=== PATIENT | female | born 1935 | race Caucasian/White ===

== ENCOUNTER → 2016-10-01 | Outpatient (CLI) | payer OTHER | LOC: FIMAGING 13:10 → EDSTATUS 13:11 | PROVIDERS: ATTEND Family Medicine | DX: M43.16 Spondylolisthesis, lumbar region (principal); M12.88 Other specific arthropathies, not elsewhere classified, other specified site; M41.86 Other forms of scoliosis, lumbar region ==

== ENCOUNTER 2017-02-20 06:59 | Emergency (ER) | payer OTHER ==
[2017-02-20 07:09] VITALS: RESP 16; O2SAT 94
--- NOTE | 2017-02-20 07:22 | EDPHY ---
H & P Stated Complaint: RUQ abdominal pain Time Seen by Provider: 02/20/17 07:21 - Personal History Current Tetanus Diphtheria and Acellular Pertussis (TDAP): Yes Tetanus Vaccine Date: < 10 - Medical/Surgical History Hx Asthma: No Hx Chronic Respiratory Disease: No Hx Diabetes: No Hx Cardiac Disease: Yes Hx Renal Disease: No Hx Cirrhosis: No Hx Alcoholism: No Hx HIV/AIDS: No Hx Splenectomy or Spleen Trauma: No Other PMH: BOWEL OBSTRUCTION, STENT, BREAST CA, CHOLESTEROL, E. TREMOR, DIVERTICULOSIS - Social History Smoking Status: Former smoker Constitutional: Initial Vital Signs Temperature (C) 37.2 C 02/20/17 07:02 Heart Rate 65 02/20/17 07:02 Respiratory Rate 16 02/20/17 07:02 Blood Pressure 131/77 H 02/20/17 07:02 O2 Sat (%) 94 02/20/17 07:02 Allergies/Adverse Reactions: adhesive Allergy (Verified 02/20/17 07:04) Other-Enter Comments codeine [Codeine] Allergy (Verified 02/20/17 07:04) NAUSEA Home Medications: Medication Instructions Recorded Calcium Carbonate/Vitamin D3 1 each PO DAILY 01/05/13 [Caltrate 600 + D Tablet] Multivitamins [Tab-A-Deborah] 1 each PO DAILY 01/05/13 Primidone 100 mg PO BID 01/05/13 Propranolol HCl [Inderal 40mg (*)] 40 mg PO BID 01/05/13 Simvastatin [Zocor 40 mg (RX)] 40 mg PO DAILY18 01/05/13 Triamterene/Hctz 75/50 [Maxzide 1 tab PO DAILY 01/05/13 75-50 mg Tab (RX)] Zolpidem Tartrate [Ambien 5MG (RX)] 5 mg PO HS PRN 01/05/13 Aspirin 81mg (OTC) 10/22/13 Clopidogrel Bisulfate [Plavix (RX)] 75 mg PO DAILY 10/22/13 CYCLOBENZAPRINE HCL [Flexeril] 06/15/14 Atorvastatin Calcium [Lipitor 40 40 mg PO DAILY 02/20/17 mg (*)] Clobetasol 0.05% [Temovate Cream] 02/20/17 Hydrocodone/APAP 5/325 [[place] 0.5 - 1 each PO Q4-6PRN PRN #20 tab 10/14/17 5/325] Ranitidine HCl 150 mg PO BID 02/20/17 Triamterene/Hydrochlorothiazid 02/20/17 [Triamterene-Hctz 75-50 mg Tab] Medical Decision Making - Diagnostics Imaging Results: Imaging Impressions Chest CT 02/20/17 07:26 Impression: 1. Negative. No acute fracture, pneumothorax, or explanation for right-sided pain. 2. Chronic mild airways disease. No pulmonary fibrosis or acute pulmonary process. Findings discussed with Emergency Department physician, Abdullahi Johnson M.D. on February 20, 2017 at 0918 hours. Imaging: Discussed imaging studies w/ faculty i on call medical assistant Radiologist, I viewed and interpreted images myself ED Course/Re-evaluation: CHIEF COMPLAINT: Right-sided rib pain HISTORY OF PRESENT ILLNESS: The patient is an 81 y/o female complaining of right-sided lower rib pain that woke her up this morning. The pain is exacerbated when she coughs, but it does not hurt to take a deep breath. When she lies on her left side, she notes it feels like its crushing her right ribs. Denies recent trauma, chest pain, abdominal pain, shortness of breath, paresthesias or other pertinent symptoms. REVIEW OF SYSTEMS: A 10 point review of systems was performed and is negative with the exception of the elements mentioned in the history of present illness. PHYSICAL EXAM: HR, BP, O2 Sat, RR. Temp noted General Appearance: Alert, well hydrated, appropriate, and non-toxic appearing. Head: Atraumatic without scalp tenderness or obvious injury Eyes: Pupils equal, round, reactive to light and accommodation, EOMI, no trauma , no injection. Ears: Clear bilaterally, no perforation, normal landmarks Nose: Atraumatic, no rhinorrhea, clear. Throat: Mucus membranes moist. Neck: Supple, nontender, no lymphadenopathy. Respiratory: No retractions, no distress, no wheezes, and no accessory muscle use. Lungs are clear to auscultation bilaterally. Cardiovascular: Regular rate and rhythm, no murmurs, rubs, or gallops. Good capillary refill all extremities. Gastrointestinal: Abdomen is soft, nontender, non-distended, no masses, no rebound, no guarding, no peritoneal signs. Musculoskeletal: Right 12th rip pain when pressing rib cage. Normal active ROM of all extremities, atraumatic. Neurological: Alert, appropriate, and interactive. Non-focal neuro. Skin: No rashes, good turgor, no nodules on palpation. Past medical history: Bowel obstruction, breast cancer, hypercholesteremia, diverticulosis Past surgical history: Stent Family history: Noncontributory Social history: Lives in [place], retired, son at bedside DIAGNOSTICS/PROCEDURES/CRITICAL CARE TIME: Chest CT: Normal DIFFERENTIAL DIAGNOSIS: The differential diagnosis for the patient's rib pain included but was not limited to musculoskeletal pain, rib fracture, intra-abdominal causes including urinary tract infection, cholecystitis, and appendicitis. MEDICAL DECISION MAKING: The patient is an 81 y/o female who presents with right 12th rip pain on palpation and when pressing the rib cage. She denies recent trauma. Plan on 0.5mg IV Dilaudid, 30mg IV Toradol, 4mg IV Zofran and a chest CT. 0915: Spoke with Dr. Lind, radiologist, he reports the patient has a normal chest CT. It is possible she has an occult rib fracture not visible with imaging. 0944: Reassessed patient and discussed imaging findings. She will be prescribed Vicodin for her severe rib pain. Return precautions provided; patient is comfortable with this plan. - Data Points Laboratory Results: 02/20/17 07:31 POC Hgb 14.6 gm/dL gm/dL (12.6-16.3) POC Hct 43 % % (38-47) POC Sodium 138 mEq/L mEq/L (134-144) POC Potassium 3.4 mEq/L mEq/L (3.3-5.0) POC Chloride 98 mEq/L mEq/L (97-110) POC BUN 19 mg/dL mg/dL (7-23) POC Creatinine 1.1 mg/dL H mg/dL (0.6-1.0) POC Glucose 84 mg/dL mg/dL (70-100) Medications Given: Discontinued Medications Hydromorphone HCl (Dilaudid) 0.5 mg IVP EDNOW ONE Stop: 02/20/17 07:27 Last Admin: 02/20/17 07:46 Dose: Not Given Ketorolac Tromethamine (Toradol) 30 mg IVP EDNOW ONE Stop: 02/20/17 07:28 Last Admin: 02/20/17 07:46 Dose: 30 mg Ondansetron HCl (Zofran) 4 mg IVP EDNOW ONE Stop: 02/20/17 07:28 Last Admin: 02/20/17 07:46 Dose: 4 mg Point of Care Test Results: 02/20/17 07:31 POC Sodium 138 POC Potassium 3.4 POC Chloride 98 POC BUN 19 POC Creatinine 1.1 H POC Glucose 84 Departure - Departure Disposition: Home, Routine, Self-Care Clinical Impression: Rib pain on right side Condition: Good Instructions: Rib Fracture (ED), Rib Contusion (ED) Additional Instructions: 1. You have a possible occult rib fracture that was not visible on your CT scan. 2. Take Vicodin as prescribed for severe pain. 3. Take 600mg Ibuprofen every 4-6 hours for pain. 4. Followup with your primary doctor within 72 hours for reevaluation. 5. Return to the emergency department for fever, worsening pain, shortness of breath or difficulty breathing, abdominal pain, blood in urine or other concerns. Referrals: Mely Jackson MD [Primary Care Provider] - As per Instructions Prescriptions: Hydrocodone/APAP 5/325 [[place] 5/325] 0.5 - 1 each PO Q4-6PRN PRN #20 tab PRN Reason: Pain, Moderate Report Scribed for: Abdullahi Johnson Report Scribed by: Qi Hagen Date of Report: 02/20/17 Time of Report: 07:22
[2017-02-20] MEDS ORDERED: HYDROmorphONE/DILAUDID 1 MG/ML INJ IVP ONE (07:26)
[2017-02-20] MEDS ORDERED: ONDANSETRON 4 MG/2 ML VIAL IVP ONE (07:27)
[2017-02-20] MEDS ORDERED: KETOROLAC 30 MG/1 ML SDV IVP ONE (07:27)
[2017-02-20] MEDS ORDERED: IOPAMIDOL (ISOVUE-300) 100 ML BTL ONE (07:38)
[2017-02-20 10:00] VITALS: BP 125/66; PULSE 77; TEMP 97.3
== END 2017-02-20 10:01 | disposition home or self-care (01) ==
DX: R07.81 Pleurodynia (principal); Z79.82 Long term (current) use of aspirin; Z85.3 Personal history of malignant neoplasm of breast; Z87.891 Personal history of nicotine dependence
CPT/HCPCS: 71260; 96374; 96375; 99285; J1885; J2405; Q9967; 82947-QW; J1170

== ENCOUNTER 2017-03-23 09:29 | Emergency (ER) | payer OTHER ==
[2017-03-23 09:43] VITALS: RESP 18; TEMP 97.9
[2017-03-23] MEDS ORDERED: HYDROCODONE/APAP 5/325 TAB PO ONE (11:02)
--- NOTE | 2017-03-23 12:28 | EDPHY ---
H & P Stated Complaint: r rib pain x 1 month/seen here ct wnl Time Seen by Provider: 03/23/17 10:45 HPI/ROS: CHIEF COMPLAINT: Right rib pain HISTORY OF PRESENT ILLNESS: This is an 81-year-old female with remote history of coronary artery disease status post stenting and breast cancer, status post bilateral mastectomy, chemotherapy, and radiation therapy. She has had breast reconstruction. She presents today with worsening right-sided lower rib pain. This has been present for over a month but over the last few days seems to be getting worse. She notices that it is worse with movement. She has not had fever or cough. She is not short of breath. She denies chest trauma. She has been taking [id number] Tylenol for this with minimal relief. She has seen a primary care physician twice for this problem and was prescribed a lidocaine cream that apparently did not get sent through to the pharmacy. REVIEW OF SYSTEMS: A ten point review of systems was performed and is negative with the exception of the items mentioned in the HPI. Past medical history: 1. Breast cancer status status post bilateral mastectomy, chemo therapy, radiation therapy and reconstructive surgery 2. Diverticulitis 3. Bowel obstruction 4. Essential tremor 5. Coronary artery disease status post stenting Past surgical history: 1. Bilateral mastectomy and breast reconstruction 2. Partial colectomy Social history: She lives independently. She is accompanied by her son today. No tobacco use. General Appearance: Alert. Vital signs reviewed. Blood pressure 139/73 Eyes: Pupils equal and round, no conjunctival injection, no discharge. Anicteric. ENT, Mouth: Mucous membranes are moist, no oropharyngeal erythema or edema. Neck: No lymphadenopathy, supple. Respiratory: Lungs are clear to auscultation; no wheezes, rales, or rhonchi. Thorax: There is tenderness to palpation over the anterior right 12th rib. No crepitus. No skin changes overlying. Cardiovascular: Regular rate and rhythm; no murmur, rub, or gallop. Gastrointestinal: Abdomen is soft and nontender, no masses or organomegaly, bowel sounds normal. Skin: Warm and dry, no rashes on exposed skin, normal color. Back: Nontender to palpation over the thoracolumbar spine. No CVAT. Extremities: No lower extremity edema, no calf tenderness or swelling. Neurological: Alert and oriented. Moving all four extremities easily and equally. Psychiatric: Normal affect. - Personal History Current Tetanus/Diphtheria Vaccine: Yes Tetanus Vaccine Date: < 10 - Medical/Surgical History Hx Asthma: No Hx Chronic Respiratory Disease: No Hx Diabetes: No Hx Cardiac Disease: Yes Hx Renal Disease: No Hx Cirrhosis: No Hx Alcoholism: No Hx HIV/AIDS: No Hx Splenectomy or Spleen Trauma: No Other PMH: BOWEL OBSTRUCTION, STENT, BREAST CA, CHOLESTEROL, E. TREMOR, DIVERTICULOSIS - Social History Smoking Status: Former smoker Constitutional: Initial Vital Signs Temperature (C) 36.6 C 03/23/17 09:38 Heart Rate 61 03/23/17 09:38 Respiratory Rate 18 03/23/17 09:38 Blood Pressure 139/73 H 03/23/17 09:38 O2 Sat (%) 94 03/23/17 09:38 O2 Delivery Mode Room Air Allergies/Adverse Reactions: adhesive Allergy (Verified 03/23/17 09:37) Other-Enter Comments codeine [Codeine] Allergy (Verified 03/23/17 09:37) NAUSEA Home Medications: Medication Instructions Recorded Calcium Carbonate/Vitamin D3 1 each PO DAILY 01/05/13 [Caltrate 600 + D Tablet] Multivitamins [Tab-A-Deborah] 1 each PO DAILY 01/05/13 Primidone 100 mg PO BID 01/05/13 Propranolol HCl [Inderal 40mg (*)] 20 mg PO BID 01/05/13 Simvastatin [Zocor 40 mg (RX)] 40 mg PO DAILY18 01/05/13 Triamterene/Hctz 75/50 [Maxzide 1 tab PO DAILY 01/05/13 75-50 mg Tab (RX)] Zolpidem Tartrate [Ambien 5MG (RX)] 5 mg PO HS PRN 01/05/13 Aspirin 81mg (OTC) 10/22/13 Clopidogrel Bisulfate [Plavix (RX)] 75 mg PO DAILY 10/22/13 CYCLOBENZAPRINE HCL [Flexeril] 06/15/14 Atorvastatin Calcium [Lipitor 40 40 mg PO DAILY 02/20/17 mg (*)] Clobetasol 0.05% [Temovate Cream] 02/20/17 Hydrocodone/APAP 5/325 [[place] 0.5 - 1 each PO Q4-6PRN PRN #20 tab 02/20/17 5/325] Ranitidine HCl 150 mg PO BID 02/20/17 Triamterene/Hydrochlorothiazid 02/20/17 [Triamterene-Hctz 75-50 mg Tab] Lidocaine [Lidocaine 4% cream] 30 gm TP BID PRN #1 cream..g. 03/23/17 Medical Decision Making ED Course/Re-evaluation: I reviewed her previous CT scan in spoke with the Radiology Service about additional imaging. I am concerned about the possibility of bony metastases in this setting of worsening rib pain. The patient herself thinks this is highly unlikely and feels that her breast cancer was thoroughly treated. A bone scan would be needed in order to adequately assess this. Radiology recommends two- view chest x-ray as the initial evaluation today. This was performed. No abnormalities are noted. I reviewed the x-ray in the radiologist's report. She received 1 Allison in the emergency department. She was reluctant to take this medication. She had some pain relief with it, but noted that it made her feel dizzy. Given that she is on a blood thinner and has a history of dizziness and some difficulty with her balance, she is cautioned to be careful with these medications. She has a prescription but will likely not use it. This is an ongoing problem and I do not feel that additional studies in the emergency department will be helpful. She is encouraged to follow up with her primary care physician and agrees to do so. She is given a prescription for lidocaine cream to see if she can obtain some relief with this medication. She cannot use lidocaine patches because she has a reaction to adhesives. Her pain is on the right and I do not suspect a cardiac etiology. She is not hypoxic or tachycardic and I do not think that PE is likely. No signs of infection or pneumonia. - Data Points Medications Given: Discontinued Medications Hydrocodone Bitart/Acetaminophen ([place] 5/325) 1 tab PO EDNOW ONE Stop: 03/23/17 11:03 Last Admin: 03/23/17 11:23 Dose: 1 tab Departure - Departure Disposition: Home, Routine, Self-Care Clinical Impression: Rib pain on right side Condition: Good Instructions: Chest Wall Pain (ED) Additional Instructions: Try the lidocaine cream. Follow up in Dr. Jackson' office. Referrals: Mely Jackson MD [Primary Care Provider] - As per Instructions Prescriptions: Lidocaine [Lidocaine 4% cream] 30 gm TP BID PRN #1 cream..g. PRN Reason: chest wall pain
[2017-03-23 12:53] VITALS: BP 122/71; PULSE 56; O2SAT 93
== END 2017-03-23 12:53 | disposition home or self-care (01) ==
DX: R07.81 Pleurodynia (principal); I25.10 Atherosclerotic heart disease of native coronary artery without angina pectoris; Z79.82 Long term (current) use of aspirin; Z85.3 Personal history of malignant neoplasm of breast; Z87.891 Personal history of nicotine dependence; Z95.5 Presence of coronary angioplasty implant and graft

== ENCOUNTER → 2017-04-08 | Outpatient (CLI) | payer OTHER | LOC: FIMAGING 09:18 | PROVIDERS: ATTEND Family Medicine | DX: M89.8X9 Other specified disorders of bone, unspecified site (principal); R22.0 Localized swelling, mass and lump, head; Z85.3 Personal history of malignant neoplasm of breast | CPT/HCPCS: 78306; A9503 ==

== ENCOUNTER → 2017-05-05 | Outpatient (CLI) | payer OTHER | LOC: FIMAGING 12:36 | PROVIDERS: ATTEND Internal Medicine Hematology & Oncology | DX: D47.2 Monoclonal gammopathy (principal); Z85.3 Personal history of malignant neoplasm of breast; R93.0 Abnormal findings on diagnostic imaging of skull and head, not elsewhere classified; R93.6 Abnormal findings on diagnostic imaging of limbs ==

== ENCOUNTER → 2017-07-22 | Outpatient (CLI) | payer OTHER | LOC: FIMAGING 15:30 | PROVIDERS: ATTEND Family Medicine | DX: M41.86 Other forms of scoliosis, lumbar region (principal); M85.80 Other specified disorders of bone density and structure, unspecified site ==

== ENCOUNTER → 2017-07-30 | Outpatient (CLI) | payer OTHER | LOC: FIMAGING 15:41 | PROVIDERS: ATTEND Family Medicine | DX: J45.909 Unspecified asthma, uncomplicated (principal) ==

== ENCOUNTER → 2017-08-03 | Outpatient (CLI) | payer OTHER ==
[~2017-08-03] MED LIST: IOPAMIDOL (ISOVUE-300) 100 ML BTL ONE
== END ==
LOC: FIMAGING 14:09
PROVIDERS: ATTEND Family Medicine
DX: R10.11 Right upper quadrant pain (principal); R74.0 Nonspecific elevation of levels of transaminase and lactic acid dehydrogenase [LDH]
CPT/HCPCS: 74177; Q9967

== ENCOUNTER → 2017-09-06 | Outpatient (CLI) | payer OTHER | LOC: FIMAGING 11:35 | PROVIDERS: ATTEND Family Medicine | DX: M79.89 Other specified soft tissue disorders (principal); M71.22 Synovial cyst of popliteal space [Baker], left knee ==

== ENCOUNTER 2018-01-01 12:08 | Emergency (ER) | payer OTHER ==
[2018-01-01] MEDS ORDERED: NS 500 ML IV ONE (13:26)
--- NOTE | 2018-01-01 13:31 | EDPHY ---
H & P Time Seen by Provider: 01/01/18 13:01 HPI/ROS: HPI Head injury, fell into refrigerator. 82-year-old female by private vehicle. This patient reports that 4 days ago she was in her kitchen area. The phone rang and she turned around quickly to answer the phone, loss her balance as she was turning around and fell into the refrigerator striking the left side of her face. She reports that since then she has had trouble hearing from her left ear. She has hearing problems in the right ear but states that she has had relatively good hearing from her left ear and that her hearing in her left ear has been worsening over the last several days. She is on Plavix. She has a history of coronary artery disease. She denies any other associated signs or symptoms. ROS: Constitutional: No fever, no chills. No weakness. Eyes: No discharge. No changes in vision. ENT: No sore throat. No nasal congestion or rhinorrhea. As above. Respiratory: No cough. No shortness of breath. Cardiac: No chest pain, no palpitations. Gastrointestinal: No abdominal pain, no vomiting, no diarrhea. Genitourinary: No hematuria. No dysuria or increased frequency with urination. Musculoskeletal: No back pain. No neck pain. No extremity pain. Skin: No rashes. Neurological: No headache. No focal weakness or altered sensation. Past medical history: Coronary artery disease with stent, bowel obstruction, breast cancer, tremor, diverticulosis. Social history: She currently lives alone. She ambulates without assistance. She has a son who lives nearby. She drinks 2 glasses of wine a night. Nonsmoker. Physical Exam: General Appearance: Alert, no distress. This patient is responding to questions appropriately and in full sentences. This patient appears well- hydrated and well-nourished. Head: Normocephalic atraumatic except for a left periorbital contusion, no bony step-off or deformity noted on palpation of this area. Face: Facial bones are stable on palpation. Eyes: Pupils equal and round and reactive to light, no pallor or injection. No lid erythema or edema. ENT, Mouth: Mucous membranes moist. Dentition is intact. No malocclusion of the jaw. No tongue lacerations or abrasions. Pharynx is clear. The bilateral nasal canals are clear. No septal hematoma. External auditory canals and tympanic membranes are normal and intact bilaterally. She does appear to have some scarring involving the left tympanic membrane. This appears old. Respiratory: There are no retractions, lungs are clear to auscultation with good air movement bilaterally. Chest wall is stable to AP and lateral palpation. Cardiovascular: Regular rate and rhythm. No murmur. Gastrointestinal: Abdomen is soft and nontender, no masses, bowel sounds normal. Neurological: Motor sensory function is intact. Cranial nerves are normal. Cerebellar function intact. Skin: Warm and dry, no rashes. No lacerations, abrasions or contusions. Musculoskeletal: Neck is supple and nontender. The trachea is midline. No midline cervical, thoracic, lumbar or sacral tenderness on palpation. No flank tenderness on palpation. Extremities are symmetrical, full range of motion. All joints in the bilateral upper and bilateral lower extremities range without pain or impingement. No tenderness on palpation of the long bones in the bilateral upper and bilateral lower extremities. Psychiatric: No agitation. No depression. Database: EKG: EKG time is 2:05 p.m.; EKG shows a narrow complex normal sinus rhythm with a ventricular rate of 61. The OK, QRS, QT intervals are within normal limits. There are no ST-T wave changes indicative of ischemic or injury pattern. No evidence of right heart strain. Interpreted by me. Imaging: CT head without contrast: Negative. Results were discussed with staff radiologist. Procedures: Emergency department course: Triage vital signs reviewed. IV placed. She was placed on a monitor. She will be given 250 cc to 500 cc of IV normal saline. I discussed CT imaging with her given her head injury and the fact that she was on Plavix. She consents. EKG obtained and reviewed by myself. 2:50 p.m., the patient was re-evaluated. She is resting comfortably at this time. Results of her EKG, CT scan and blood work were discussed with her. Repeat neurologic Assessment is nonfocal. At this time I feel the patient is safe for discharge. I will consult with ENT, Dr. Buzz Quinones, with [facility] for follow-up for this patient on Wednesday. She is in agreement with this plan and feels comfortable going home. 3:00 p.m., spoke with on-call ENT he specialist Dr. Buzz Quinones. The patient's case was discussed in detail with him. He will see this patient in his clinic here at the hospital on Wednesday morning for a hearing test and further evaluation. This plan was discussed with the patient. She is in full agreement. Return to emergency department precautions were thoroughly reviewed with her. All of her questions were answered. She was discharged home in good condition. Differential Diagnosis: The differential diagnosis on this patient includes but is not limited to mechanical fall, facial contusion, hearing impairment. Facial fracture, traumatic brain injury, cervical spine injury, CVA unlikely. This represents a partial list of diagnoses considered. These considerations are based on history , physical exam, past history, reassessment and diagnostic testing. Smoking Status: Former smoker Constitutional: Initial Vital Signs Temperature (C) 36.8 C 01/01/18 12:17 Heart Rate 61 01/01/18 12:17 Respiratory Rate 18 01/01/18 12:17 Blood Pressure 130/74 H 01/01/18 12:17 O2 Sat (%) 96 01/01/18 12:17 O2 Delivery Mode Room Air Allergies/Adverse Reactions: adhesive Allergy (Verified 01/01/18 12:16) Other-Enter Comments codeine [Codeine] Allergy (Verified 01/01/18 12:16) NAUSEA Home Medications: Medication Instructions Recorded Calcium Carbonate/Vitamin D3 1 each PO DAILY 01/05/13 [Caltrate 600 + D Tablet] Multivitamins [Tab-A-Deborah] 1 each PO DAILY 01/05/13 Primidone 100 mg PO BID 01/05/13 Propranolol HCl [Inderal 40mg (*)] 20 mg PO BID 01/05/13 Simvastatin [Zocor 40 mg (RX)] 40 mg PO DAILY18 01/05/13 Triamterene/Hctz 75/50 [Maxzide 1 tab PO DAILY 01/05/13 75-50 mg Tab (RX)] Zolpidem Tartrate [Ambien 5MG (RX)] 5 mg PO HS PRN 01/05/13 Aspirin 81mg (OTC) 10/22/13 Clopidogrel Bisulfate [Plavix (RX)] 75 mg PO DAILY 10/22/13 CYCLOBENZAPRINE HCL [Flexeril] 06/15/14 Atorvastatin Calcium [Lipitor 40 40 mg PO DAILY 02/20/17 mg (*)] Clobetasol 0.05% [Temovate Cream] 02/20/17 Hydrocodone/APAP 5/325 [[place] 0.5 - 1 each PO Q4-6PRN PRN #20 tab 02/20/17 5/325] Ranitidine HCl 150 mg PO BID 02/20/17 Triamterene/Hydrochlorothiazid 02/20/17 [Triamterene-Hctz 75-50 mg Tab] Lidocaine [Lidocaine 4% cream] 30 gm TP BID PRN #1 cream..g. 03/23/17 Medical Decision Making - Diagnostics Imaging Results: Imaging Impressions Head CT 01/01/18 13:26 Impression: Head CT within normal limits. No left-sided skull or facial bone fracture identified. Results called to Dr. Oconnor at 2:19 PM General information for patients regarding this examination can be found at [email or web address]. If you have questions or comments about this report, please contact me at (hospital) or [phone] (cell). - Data Points Laboratory Results: Laboratory Results 01/01/18 13:45 01/01/18 13:45 01/01/18 01/01/18 13:45 13:45 WBC 6.49 10^3/uL 10^3/uL (3.80-9.50) RBC 4.43 10^6/uL 10^6/uL (4.18-5.33) Hgb 14.0 g/dL g/dL (12.6-16.3) Hct 42.7 % % (38.0-47.0) MCV 96.4 fL fL (81.5-99.8) MCH 31.6 pg pg (27.9-34.1) MCHC 32.8 g/dL g/dL (32.4-36.7) RDW 12.8 % % (11.5-15.2) Plt Count 232 10^3/uL 10^3/uL (150-400) MPV 9.3 fL fL (8.7-11.7) Neut % (Auto) 63.9 % % (39.3-74.2) Lymph % (Auto) 24.2 % % (15.0-45.0) [place] % (Auto) 9.4 % % (4.5-13.0) Eos % (Auto) 1.7 % % (0.6-7.6) Baso % (Auto) 0.5 % % (0.3-1.7) Nucleat RBC Rel Count 0.0 % % (0.0-0.2) Absolute Neuts (auto) 4.15 10^3/uL 10^3/uL (1.70-6.50) Absolute Lymphs (auto) 1.57 10^3/uL 10^3/uL (1.00-3.00) Absolute Monos (auto) 0.61 10^3/uL 10^3/uL (0.30-0.80) Absolute Eos (auto) 0.11 10^3/uL 10^3/uL (0.03-0.40) Absolute Basos (auto) 0.03 10^3/uL 10^3/uL (0.02-0.10) Absolute Nucleated RBC 0.00 10^3/uL 10^3/uL (0-0.01) Immature Gran % 0.3 % % (0.0-1.1) Immature Gran # 0.02 10^3/uL 10^3/uL (0.00-0.10) Sodium 138 mEq/L mEq/L (135-145) Potassium 3.8 mEq/L mEq/L (3.3-5.0) Chloride 103 mEq/L mEq/L (97-110) Carbon Dioxide 28 mEq/l mEq/l (22-31) Anion Gap 7 mEq/L L mEq/L (8-16) BUN 17 mg/dL mg/dL (7-23) Creatinine 0.8 mg/dL mg/dL (0.6-1.0) Estimated GFR > 60 Glucose 84 mg/dL mg/dL (70-100) Calcium 9.8 mg/dL mg/dL (8.5-10.4) Medications Given: Discontinued Medications Sodium Chloride (Ns) 500 mls @ 0 mls/hr IV ONCE ONE; Wide Open PRN Reason: Protocol Stop: 01/01/18 13:27 Last Admin: 01/01/18 13:46 Dose: 500 mls Departure - Departure Disposition: Home, Routine, Self-Care Clinical Impression: Periorbital contusion of left eye, Hearing impairment Condition: Good Instructions: Hearing Loss (ED), Black Eye (ED) Additional Instructions: Read and follow provided instructions. Follow-up with Dr. Buzz Quinones or 1 of his partners with [facility] on Wednesday in their clinic on this campus. Call his office at 8:00 a.m. For appointment time. Explain to the office manager receptionist that your seen in the emergency department and that Dr. Buzz Quinones requested that you be seen on Wednesday for a hearing test and further evaluation. Return to the emergency department for worsening symptoms, headache, loss of sensation or weakness in her extremities, difficulty walking or other serious concerns. Referrals: Buzz Quinones MD [Medical Doctor] - As per Instructions
[2018-01-01 14:46] LABS: PLATELET COUNT 232 10^3/uL (150-400)
[2018-01-01 15:08] VITALS: BP 139/72
--- NOTE | 2018-01-01 18:57 | CPEKG ---
Test Reason : OPEN Blood Pressure : / mmHG Vent. Rate : 061 BPM Atrial Rate : 062 BPM P-R Int : 162 ms QRS Dur : 107 ms QT Int : 455 ms P-R-T Axes : 067 042 013 degrees QTc Int : 459 ms Sinus rhythm Confirmed by Ros Oconnor ([id number]) on 01/01/2018 6:56:32 PM Referred By: Confirmed By:Ros Oconnor
== END 2018-01-01 15:35 | disposition home or self-care (01) ==
DX: S05.12XA Contusion of eyeball and orbital tissues, left eye, initial encounter (principal); H91.92 Unspecified hearing loss, left ear; W01.198A Fall on same level from slipping, tripping and stumbling with subsequent striking against other object, initial encounter; Y92.010 Kitchen of single-family (private) house as the place of occurrence of the external cause; Y99.8 Other external cause status

== ENCOUNTER → 2018-09-02 | Outpatient (CLI) | payer OTHER | LOC: FLAB 14:51 | PROVIDERS: ATTEND Clinical Nurse Specialist Adult Health | DX: M79.671 Pain in right foot (principal) ==

== ENCOUNTER → 2018-10-06 | Outpatient (CLI) | payer OTHER | LOC: FIMAGING 16:01 ==